=== PATIENT | female | born 1965 | race Caucasian/White ===

== ENCOUNTER 2024-11-17 00:44 | Day surgery (SDC) | payer OTHER, SELFPAY ==
[2024-10-30 15:40] VITALS: BMI 33.1
--- OUTSIDE RECORDS SUMMARY | 2024-11-17 00:49 | XMS_ITS | Clinical Summary ---
Author Organization [facility] Address [address] [place] [id number] Care Team Providers Care Exercise Instructor Name Role Phone Chris De Souza MD Primary Care Provider [phone] Chris De Souza MD Unavailable [phone] Allergies Active Allergy Reactions Criticality Noted Date Comments Amoxicillin-Pot Clavulanate Hives Medium Reaction: HIVES Aspirin Other (See comments) Low Reaction: JITTERY, Cephalexin Rash Medium 12/24/2010 Moxifloxacin Anaphylaxis High Reaction: HIVES Nitrofurantoin Hives Medium 07/01/2021 Sulfa (Sulfonamide Antibiotics) Rash Medium 07/08/2010 Reaction: RASH Medications carvedilol (COREG) 12.5 mg tablet 5 10/27/19 18 Active cetirizine (ZyrTEC) 10 mg tabletIndications: Allergic Conjunctivitis Take 1 tablet (10 mg total) by mouth repairer wood furniture before breakfast Active ibuprofen (ibuprofen) 200 mg tab/capIndications :Pain Take 1 tablet/capsule (200 mg total) by mouth every 6 (six) hours as needed for pain Active pravastatin (PRAVACHOL) 40 mg tablet Take 1 tablet (40 mg total) by mouth every evening 12/04/19 21 Active furosemide (LASIX) 20 mg tablet Take 1 tablet (20 mg total) by mouth daily as needed 10/03/19 23 Active meloxicam (MOBIC) 15 mg tabletIndications: Osteoarthritis Take 1 tablet (15 mg total) by mouth daily 30 tablet 1 01/23/20 23 Active Additional Information Patient not taking.Reported on 04/25/2024 cyanocobalamin, vitamin B-12, (VITAMIN B-12 ORAL) Take by mouth Active cranberry fruit concentrate (AZO CRANBERRY ORAL) Take by mouth Active estradioL (ESTRACE) 0.01 % (0.1 mg/gram) vaginal cream 1 GM VAGINAL MON/SUN/SARAHI/FRI /SAT 11/13/19 24 Active benzonatate (TESSALON) 100 mg capsuleIndications :Cough Take 1 capsule (100 mg total) by mouth 3 (three) times a day as needed for cough 42 capsule 04/25/19 25 Active albuterol HFA (PROVENTIL HFA,VENTOLIN HFA,PROAIR HFA) 90 mcg/actuation inhalerIndications :Bronchitis Inhale 2 puffs every 6 (six) hours as needed for wheezing for up to 7 days 1 each 04/25/19 25 Active Active Problems Problem Noted Date Diagnosed Date Shoulder mass 01/04/2018 Overview (01/04/2018): Added automatically from request for surgery [id number] Dysthymia 10/27/2016 Essential (primary) hypertension 10/27/2016 Uncomplicated asthma 10/27/2016 History of syncope 09/16/2015 Acquired absence of both cervix and uterus 09/16 Overview (02/24/2020): Note: Unchanged - [facility] IN 2007 BY [facility]. LEFT BOTH OVARIES at [facility]-- menorrhagia/ dysmenorrhea/ fibroid ut Fibrocystic breast changes 09/16/2013 Overview (02/24/2020): Note: Unchanged Perimenopausal disorder 09/16/2013 Overview (02/24/2020): Note: Unchanged Allergies 07/18/2012 Bicuspid aortic valve 05/26/2011 Hypothyroidism 01/01/2011 Asthma 12/28/2010 Hives 12/28/2010 Anaphylactoid reaction 12/24/2010 Urticaria 12/24/2010 Syncope and collapse 11/18/2010 Thoracic aortic aneurysm without rupture 011 Enlarged thoracic aorta 09/08/2010 Overview (11/20/2017): Overview: Overview: Mildly enlarged by CT angio of chest in 08/2010, with max diameter 3.8cm in the mid ascending segment, which is enlarged relative to the rest of her aorta. (Cardiac cath overestimated it at 4.95cm max diameter.) 11/2012 -- Coreg stopped, due to low energy when took it, and stable BP even off it 11/2012 Echo -- The ascending aorta was mildly dilated = 3.8 cm 04/2014 Echo -- Ascending aorta mildly dilated = 3.9 cm Enlarged thoracic aorta 09/08/2010 Overview (06/29/2020): Mildly enlarged by CT angio of chest in 08/2010, with max diameter 3.8cm in the mid ascending segment, which is enlarged relative to the rest of her aorta. (Cardiac cath overestimated it at 4.95cm max diameter.) 11/2012 -- Coreg stopped, due to low energy when took it, and stable BP even off it 11/2012 Echo -- The ascending aorta was mildly dilated = 3.8 cm 04/2014 Echo -- Ascending aorta mildly dilated = 3.9 cm Aortic valvar stenosis 09/07/2010 Overview (11/20/2017): Overview: Cath 08/2010 -- mild with angiographically normal coronaries, LVEDP 15 mmHg (normal) JUSTA 08/2010 -- mean AV gradient 10 mmHg. Echo 10/2011 -- mild with mean gradient 18 mmHg, peak velocity: 286 cm/s. Valve area = 1.1 cmsq (VTI). Echo 11/2012 -- Bicuspid AV with mild stenosis. Mean gradient: 11mm Hg Echo 04/2014 -- Probable bicuspid AV. Mild to moderate stenosis. Trivial to mild regurgitation. Peak velocity: 271cm/s. Mean gradient: 19mm Hg. Valve area: 1.34cm\S\2(VTI). Aortic valve insufficiency, acquired 09/07/2010 Overview (11/20/2017): Overview: Mild by echo, 10/2011 Trivial AI, echo 11/2012 Aortic valve stenosis, nonrheumatic 09/07/2010 Overview (11/20/2017): Overview: Mild by echo, 10/2011 Trivial AI, echo 11/2012 Overview: Cath 08/2010 -- mild with angiographically normal coronaries, LVEDP 15 mmHg (normal) JUSTA 08/2010 -- mean AV gradient 10 mmHg. Echo 10/2011 -- mild with mean gradient 18 mmHg, peak velocity: 286 cm/s. Valve area = 1.1 cmsq (VTI). Echo 11/2012 -- Bicuspid AV with mild stenosis. Mean gradient: 11mm Hg Echo 04/2014 -- Probable bicuspid AV. Mild to moderate stenosis. Trivial to mild regurgitation. Peak velocity: 271cm/s. Mean gradient: 19mm Hg. Valve area: 1.34cm\S\2(VTI). Echo 10/2017 - mild LVE, EF 60%, mild (Vmax 2.7 m/s, mean grad 16), mild AI, mild MR, RVSP 31, proximal ascending aorta not well seen. Aortic valvar stenosis 09/07/2010 Overview (06/29/2020): Cath 08/2010 -- mild with angiographically normal coronaries, LVEDP 15 mmHg (normal) JUSTA 08/2010 -- mean AV gradient 10 mmHg. Echo 10/2011 -- mild with mean gradient 18 mmHg, peak velocity: 286 cm/s. Valve area = 1.1 cmsq (VTI). Echo 11/2012 -- Bicuspid AV with mild stenosis. Mean gradient: 11mm Hg Echo 04/2014 -- Probable bicuspid AV. Mild to moderate stenosis. Trivial to mild regurgitation. Peak velocity: 271cm/s. Mean gradient: 19mm Hg. Valve area: 1.34cm\S\2(VTI). Aortic valve insufficiency, acquired 09/07/2010 Overview (06/29/2020): Mild by echo, 10/2011 Trivial AI, echo 11/2012 Dyspnea 08/18/2010 Wheezing 08/18/2010 Aortic valve disorder 07/08/2010 Encounters Date Type Department Care Team Description 11/13/2024 2:18 PM CDT - 11/13/2024 11:59 PM CDT Hospital Encounter [facility] [address] [place] [address] Abnormal mammogram Discharge Disposition: Discharge to home or self care 11/13/2024 2:17 PM CDT - 11/13/2024 11:59 PM CDT Hospital Encounter [facility] [address] [place] [address] Abnormal mammogram Discharge Disposition: Discharge to home or self care 10/29/2024 12:20 PM CDT - 10/29/2024 11:59 PM CDT Hospital Encounter [facility] [address] [place] [address] Screening mammogram, encounter for Discharge Disposition: Discharge to home or self care 09/17/2024 Telephone [facility] [address] [facility] [address] [place] [phone] Akin Watkins MD Left hip referral from Last 3 Months Surgical History Surgery Date Site/Laterality Comments HYSTERECTOMY EAR SURGERY ANKLE SURGERY Right Medical History Medical History Date Comments Arthritis Valvular disease Hypertension Family History Medical History Relation Name Comments Arthritis Father Diabetes Father Hypertension Father Arthritis Mother Hypertension Mother Breast cancer Neg Hx Ovarian cancer Neg Hx Thyroid cancer Neg Hx Relation Name Status Comments Father Mother Social History Tobacco Use Types Packs/Day Years Used Date Smoking Tobacco: Never Smokeless Tobacco: Never Tobacco Cessation:Counseling Given: Not Answered Alcohol Use Standard Drinks/Week Comments No 0 (1 standard drink = 0.6 oz pur e alcohol) Personal Safety Answer Date Recorded Have you ever been in or are you currently in a harmful physical or emotional relationship or is someone making you feel afraid or unsafe? Denies 08/09/2024 Comments No Sex and Gender Information Value Date Recorded Sex Assigned at Not on file Legal Sex Female 1:44 AM FLY TIER Gender Identity Female 01/21/2023 8:49 PM CDT Sexual Orientation Straight 01/21/2023 8: 49 PM CDT Occupation Industry Job Start Date Job End Date Teacher Not on file Not on file Not on file Obstetrics History Para Term AB IAB SAB Ectopic Multiple Livin g Live Births 1 1 1 1 Date Outcome GA Total Labor Labor/2nd/3rd Weight Sex Type Anes PTL Sarah A1 A5 Name Clin Term Last Filed Vital Signs Vital Sign Reading Time Taken Comments Blood Pressure 134/80 08/09/2024 9:30 PM CDT Pulse 63 08/09/2024 9:30 PM CDT Temperature 36.4 C (97.6 F) 08/09/2024 3:21 PM CDT Respiratory Rate 20 08/09/2024 3:21 PM CDT Oxygen Saturation 97% 08/09/2024 9:30 PM CDT Inhaled Oxygen Concentration - - Weight 99.3 kg (219 lb) 11/13/2024 2:25 PM CDT Height 172.7 cm (5' 8) 11/13/2024 2:25 PM CDT Body Mass Index 33.3 11/13/2024 2:25 PM CDT Plan of Treatment Health Maintenance Due Date Last Done Comments Depression Screening 1965 Hepatitis C Screening 1964 Hepatitis B Screening 1982 Regular Well Visit/Exam 18-64 1982 Pneumococcal vaccine <65 (2 of 2 - PPSV23) 05/07/2011 03/12/2011 Zoster Vaccine (1 of 2) 2014 Influenza Vaccine (#1) 2024 2, 01/25/2021, 01/29/2020, Additional history exists Breast Cancer Screening-Mammogram 11/13/2025 11/13/2024, 10/29/2024, 01/12/2023, Additional history exists DTaP/Tdap/Td Vaccine (2 - Td or Tdap) 11/15/2025 11/16/2015 Colon Cancer Screening-Colonoscopy 12/05/2025 12/06/2015 Colon Cancer Screening-CT Colonography Discontinued 12/06/2015 Colon Cancer Screening-DNA Stool Discontinued 12/06/19 16 Colon Cancer Screening-FIT Discontinued 12/06/2015 Colon Cancer Screening-Sigmoidoscopy Discontinued 12/06/2015 Procedures Procedure Name Priority Date/Time Associated Diagnosis Comments DIAGNOSTIC MAMMOGRAM BILATERAL [place]ELAND Schedule Routine, Read Routine (OP Routine) 11/13/2024 2:38 PM CDT Abnormal mammogram SCREENING MAMMOGRAM BILATERAL [place] Schedule Routine, Read Routine (OP Routine) 10/29/2024 12:51 PM CDT Screening mammogram, encounter for COLONOSCOPY IMAGES 12/06/2015 from Last 3 Months or Most Recently Relevant to Health Maintenance Results * Diagnostic Mammogram Bilateral [place] (11/13/2024 2:38 PM CDT) Anatomical Region Laterality Modality Breast Bilateral Mammography 11/13/2024 4:09 PM CDT Impressions 11/13/2024 4:09 PM CDT Bilateral mammographic and sonographic lesions are probably benign. A follow-up bilateral diagnostic mammogram and ultrasound are recommended in 6 months. BI-RADS: 3 - Probably benign The patient has been or will be contacted. The patient will be entered into a reminder system with a target due date of 6 months for her next examinations. Electronically signed by: Sandy Watkins M.D. Narrative 11/13/2024 4:09 PM CDT EXAMINATION: DIAGNOSTIC MAMMOGRAM BILATERAL [place]AND ORDERING HEALTHCARE PROVIDER: MEGAN PEARCE HISTORY: Follow-up breast asymmetry seen on screening mammogram. COMPARISON: 2019, 03/19/2020 01/03/2023, 01/03/2022 TECHNIQUE: CC and MLO spot compression and lateral views of the Bilateral breasts were obtained with digital technique using breast tomosynthesis with C view. Computer aided detection was utilized. This was followed by targeted bilateral breast sonography FINDINGS: There are scattered areas of fibroglandular density. Additional views of both breasts were obtained. The asymmetry seen in the central left breast on the craniocaudal view anteriorly and the asymmetry seen in the superior right breast on the MLO view, middle depth partially effaces on the additional views. Further evaluation targeted bilateral breast ultrasound: At the 1 o'clock position of the right breast, 3 cm from the nipple, there is a 3 mm cyst. Within the left breast, at the 1 o'clock position, 3 cm from the nipple, there is a 0.5 x 0.3 x 0.2 cm hypoechoic lesion which is likely a complex cyst. Neither of these demonstrate internal vascularity. It is unclear if these lesions correspond to the mammographic findings. The mammographic and sonographic lesions in both breasts will be classified as probably benign. Procedure Note Sandy Watkins MD - 07/31/2025 EXAMINATION: DIAGNOSTIC MAMMOGRAM BILATERAL [place]AND ORDERING HEALTHCARE PROVIDER: MEGAN PEARCE HISTORY: Follow-up breast asymmetry seen on screening mammogram. COMPARISON: 2019, 03/19/2020 01/03/2023, 01/03/2022 TECHNIQUE: CC and MLO spot compression and lateral views of the Bilateral breasts were obtained with digital technique using breast tomosynthesis with C view. Computer aided detection was utilized. This was followed by targeted bilateral breast sonography FINDINGS: There are scattered areas of fibroglandular density. Additional views of both breasts were obtained. The asymmetry seen in the central left breast on the craniocaudal view anteriorly and the asymmetry seen in the superior right breast on the MLO view, middle depth partially effaces on the additional views. Further evaluation targeted bilateral breast ultrasound: At the 1 o'clock position of the right breast, 3 cm from the nipple, there is a 3 mm cyst. Within the left breast, at the 1 o'clock position, 3 cm from the nipple, there is a 0.5 x 0.3 x 0.2 cm hypoechoic lesion which is likely a complex cyst. Neither of these demonstrate internal vascularity. It is unclear if these lesions correspond to the mammographic findings. The mammographic and sonographic lesions in both breasts will be classified as probably benign. IMPRESSION: Bilateral mammographic and sonographic lesions are probably benign. A follow-up bilateral diagnostic mammogram and ultrasound are recommended in 6 months. BI-RADS: 3 - Probably benign The patient has been or will be contacted. The patient will be entered into a reminder system with a target due date of 6 months for her next examinations. Electronically signed by: Sandy Watkins M.D. us Megan Pearce DENTAL SERVICES DIRECTOR IMG MAMMO PROCEDURES Final Res ult * (ABNORMAL) Screening Mammogram Bilateral [place]eland (10/29/2024 12:51 PM CDT) Anatomical Region Laterality Modality Breast Bilateral Mammography Impressions 10/29/2024 2:16 PM CDT Left 1) Asymmetry: Left breast asymmetry in the central region in the anterior depth. Assessment: 0 - Incomplete. Diagnostic mammogram with possible ultrasound is recommended. Right 2) Asymmetry: Right breast asymmetry in the upper region in the middle depth. Assessment: 0 - Incomplete. Diagnostic mammogram with possible ultrasound is recommended. OVERALL BI-RADS FINAL ASSESSMENT: 0 - Incomplete: Needs Additional Imaging Evaluation RECOMMENDATION: Recommend bilateral diagnostic mammogram with possible ultrasound. Narrative 10/29/2024 2:16 PM CDT EXAMINATION: Screening Mammogram Bilateral W Leland: 10/29/2024 COMPARISON: Relevant prior studies available at the time of interpretation were reviewed, including the most recent mammogram on: 01/12/2023. TECHNIQUE: Mammography was performed with 2D and digital breast tomosynthesis (DBT) images. CAD was utilized. BREAST PARENCHYMAL COMPOSITION: There are scattered areas of fibroglandular density. FINDINGS: Left 1) Asymmetry: There is an asymmetry seen in the central region of the left breast in the anterior depth. This finding needs additional imaging evaluation. Right 2) Asymmetry: There is an asymmetry seen in the upper region of the right breast in the middle depth. This finding needs additional imaging evaluation. us Self Screening Mammogram IMG MAMMO PROCEDURES Fi nal Result * COLONOSCOPY IMAGES (12/06/2015) Anatomical Region Laterality Modality Other Narrative 12/06/2015 Ordered by an unspecified provider. Historical Provider GI PROCEDURE ORDERABLES F inal Result from Last 3 Months or Most Recently Relevant to Health Maintenance Insurance [employer] SIG [id number] [facility] Care Teams Exercise Instructor Relationship Specialty Start Date End Date Chris De Souza MD [address] [place] [address] PCP - General 12/01/10 Chris De Souza MD [address] [place] [address] Referring Physician Internal Medicine 10/15/19
--- OUTSIDE RECORDS SUMMARY | 2024-11-17 00:49 | XMS_ITS | Encounter Summary ---
Author Organization [facility] Address [address] [place] [address] Phone Care Team Providers Care Breastfeeding Peer Counselor Name Role Phone Chris De Souza MD Primary Care Provider [phone] Ryan Acosta MD Unavailable Reason for Visit * Reason Comments Medication Refill Encounter Details Date Type Department Care Team (Late st Contact Info) Description 11/16/[address] [facility] - Internal Medicine - [place] [address] [place] [id number] Chris De Souza MD [address] [facility] [place] [address] Medication Refill Social History Tobacco Use Types Packs/Day Years Used Date Smoking Tobacco: Never Passive Smoke Exposure: Past Smokeless Tobacco: Never Alcohol Use Standard Drinks/Week Comments Not Currently 0 (1 standard drink = 0.6 oz pur e alcohol) [facility] Utilities Answer Date Recorded In the past 12 months has [employer], gas, oil, or water company threatened to shut off services in your home? No 08/04/2024 Social Connection and Isolation Panel Answer Date Recorded In a typical week, how many times do you talk on the phone with family, friends, or neighbors? More than three times a week 08/04/2024 How often do you get togethe r with friends or relatives? Twice a week 08/04/2024 How often do you attend [facility] or anabaptist services? More than 4 times per year 08/04/2024 Do you belong to any clubs o r organizations such as mandaeism groups, unions, fraternal or athletic groups, or school groups? Yes 08/04/2024 How often do you attend meet ings of the clubs or organizations you belong to? More than 4 times per year 08/04/2024 Are you , , di vorced, , never , or living with a partner? 08/04/2024 AUDIT-C Answer Date Recorded Q1: How often do you have a drink containing alcohol? Never 08/04/2024 Q2: How many drinks containi ng alcohol do you have on a typical day when you are drinking? Patient does not drink Q3: How often do you have si x or more drinks on one occasion? Never 08/04/2024 Overall Financial Resource Strain (CARDIA) Answe r Date Recorded How hard is it for you to pa y for the very basics like food, housing, medical care, and heating? Not very hard 08/04/2024 PHQ-2 Answer Date Recorded Total Score - Questions 1-9 0 04/17 [facility] Occupat ional [facility] - Occupational Stress Questionnaire Answer Date Recorded Do you feel stress - tense, restless, nervous, or anxious, or unable to sleep at night because your mind is troubled all the time - these days? Only a little 08/04/2024 Exercise Vital Sign Answer Date Recorde d On average, how many days pe r week do you engage in moderate to strenuous exercise (like a brisk walk)? 5 days 08/04/2024 On average, how many minutes do you engage in exercise at this level? 30 min 08/04/2024 Hunger Vital Sign Answer Date Recorded Within the past 12 months, y ou worried that your food would run out before you got the money to buy more. Never true 08/05/19 25 Within the past 12 months, t he food you bought just didn't last and you didn't have money to get more. Never true 08/04/2024 PRAPARE - Transportation Answer Date Re corded In the past 12 months, has l ack of transportation kept you from medical appointments or from getting medications? No 07/16 In the past 12 months, has l ack of transportation kept you from meetings, work, or from getting things needed for daily living? No 08/04/2024 Housing Stability Vital Sign Answer Rainer e Recorded In the last 12 months, was t here a time when you were not able to pay the mortgage or rent on time? Yes 09/18/2023 In the last 12 months, how many places have you lived? 1 09/18/2023 In the last 12 months, was t here a time when you did not have a steady place to sleep or slept in a mcc (including now)? No 09/18/2023 Housing Stability Vital Sign Answer Rainer e Recorded In the last 12 months, was t here a time when you were not able to pay the mortgage or rent on time? No 08/04/2024 In the past 12 months, how m any times have you moved where you were living? 0 08/04/2024 At any time in the past 12 m [facility], were you homeless or living in a mcc (including now)? No 08/04/2024 Sexually Active Control Partners Comments Yes Comments No Sex and Gender Information Value Date Recorded Sex Assigned at Not on file Legal Sex Female 9:13 PM CDT Gender Identity Not on file Sexual Orientation Not on file documented as of this encounter Plan of Treatment Upcoming Encounters Date Type Department Care Team (Late st Contact Info) Description 02/03/2025 11:00 AM CDT Office Visit [facility] - Primary Care [facility] [address] [place] [address] Chris De Souza MD [address] [place] [address] documented as of this encounter Visit Diagnoses Not on filedocumented in this encounter Additional Health Concerns Assessment Noted Time PHQ-9 Depression Total Score: 0 05/05/19 25 2:30 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
--- OUTSIDE RECORDS SUMMARY | 2024-11-17 00:49 | XMS_ITS | Encounter Summary ---
Author Organization [facility] Address [address] [place] [place] [address] Phone Care Team Providers Care Boot And Saddle Repair Person Name Role Phone Chris De Souza MD Primary Care Provider [phone] Ryan Acosta MD Unavailable Reason for Referral * Radiology Services (Routine) - Closed Specialty Diagnoses / Procedures Referred By Phyllis boles Referred To Contact Radiology Diagnoses Pre-op testing Sinus tarsi syndrome of right foot Procedures EKG 12 LEAD Victor Hugo Palomo DPM [address] [place] [address] Phone: tel: fax: Referral ID Status Reason Start Date Expiration Date Visits Re quested Visits Authorized [id number] Closed 08/21/2022 1 1 Encounter Details Date Type Department Care Team (Late st Contact Info) Description 08/21/2022 Transcribe Orders [facility] Preop/Pacu II [address] [place] [id number] Victor Hugo Palomo DPM [address] [place] [address] Pre-op testing (Primary Dx); Sinus tarsi syndrome of right foot Social History Tobacco Use Types Packs/Day Years Used Date Smoking Tobacco: Never Passive Smoke Exposure: Past Smokeless Tobacco: Never Alcohol Use Standard Drinks/Week Comments Not Currently 0 (1 standard drink = 0.6 oz pur e alcohol) PHQ-2 Answer Date Recorded Total Score - Questions 1-9 0 05/17 Sexually Active Control Partners Comments Yes Comments No Sex and Gender Information Value Date Recorded Sex Assigned at Not on file Legal Sex Female 9:13 PM CDT Gender Identity Not on file Sexual Orientation Not on file COVID-19 Exposure Response Date Recorded In the last 10 days, have yo u been in contact with someone who was confirmed or suspected to have Coronavirus/COVID-19? No / Unsure 08/21/2022 9:08 AM CDT documented as of this encounter Plan of Treatment Upcoming Encounters Date Type Department Care Team (Late st Contact Info) Description 02/03/2025 11:00 AM CDT Office Visit [facility] - Primary [facility] - [place] [address] [place] [id number] Chris De Souza MD [address] [facility] [place] [address] documented as of this encounter Results * EKG 12 LEAD (08/31/2022 11:38 AM CDT) Ventricular Rate 57 BPM EXTERNAL EKG Atrial Rate 57 BPM EXTERNAL EKG P-R Interval 206 ms EXTERNAL EKG QRS Duration 94 ms EXTERNAL EKG Q-T Duration 438 ms EXTERNAL EKG QTC CALCULATION 426 ms EXTERNAL EKG P [place] 35 degrees EXTERNAL EKG R [place] 4 degrees EXTERNAL EKG T [place] 30 degrees EXTERNAL EKG 08/31/2022 11:3 8 AM CDT Impressions EXTERNAL EKG - 08/31/2022 12:35 PM CDT Sinus bradycardia Otherwise normal ECG No previous ECGs available Confirmed by Shalom Acosta ([id number]) on 08/31/2022 12:35:11 PM Narrative Procedure Note Shalom Pierce MD - 08/31/2022 IMPRESSION: Sinus bradycardia Otherwise normal ECG No previous ECGs available Confirmed by Shalom Acosta ([id number]) on 08/31/2022 12:35:11 PM us Victor Hugo Plaomo DPM IMG ECG ORDERABLES Final Re sult EXTERNAL EKG documented in this encounter Visit Diagnoses Diagnosis Pre-op testing- Primary Preoperative examination, unspecified Sinus tarsi syndrome of right foot Pre-op testing Preoperative examination, unspecified Sinus tarsi syndrome of right foot documented in this encounter Additional Health Concerns Assessment Noted Time PHQ-9 Depression Total Score: 0 02/22/20 21 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 [address] PCP - General Internal Medicine 08/06/15 Ryan Acosta MD [address] [address] Consulting Physician Colon and Rectal Surgery 07/25/24 documented as of this encounter
--- OUTSIDE RECORDS SUMMARY | 2024-11-17 00:49 | XMS_ITS | Clinical Summary ---
Author Organization [facility] Address [address] [place] [address] Care Team Providers Care Bad Cloth Checker Name Role Phone Cody Varela MD Unavailable [phone] Source Comments [facility],non-owned Affiliates and Associated Physician Practices is amultiple site organization consisting of ambulatory clinics and hospital sitesin [place], [place], [place] and [place]. This disclosure is being madepursuant to the Care Everywhere program and may not contain all information available regarding this patient. Last updated 18.[facility] Allergies Active Allergy Reactions Criticality Noted Date Comments Aspirin Jittery Augmentin Angioedema Moxifloxacin Shortness of breath, wheezing, rash Cephalexin Rash Low Sulfa Drugs Rash Low Medications * Be aware that medications may not be up to date on this document. Alwaysverify current medications with the patient. 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 Family History Medical History Relation Name Comments Diabetes Father Emphysema Father Heart Disease Father Hypertension Father Hypertension Mother Relation Name Status Comments Father Mother Social History Tobacco Use Types Packs/Day Years Used Date Smoking Tobacco: Never Alcohol Use Standard Drinks/Week Comments No 0 (1 standard drink = 0.6 oz pur e alcohol) Comments Unknown Sex and Gender Information Value Date Recorded Sex Assigned at Not on file Legal Sex Female 12:53 PM CDT Gender Identity Not on file Sexual Orientation Not on file Last Filed Vital Signs Vital Sign Reading Time Taken Comments Blood Pressure 125/83 04/15/2020 1:18 PM ACCREDITATION MANAGER Pulse 52 04/15/2020 1:18 PM ACCREDITATION MANAGER Temperature - - Respiratory Rate - - Oxygen Saturation 98% 04/15/2020 12:30 PM ACCREDITATION MANAGER Inhaled Oxygen Concentration - - Weight 105.7 kg (233 lb) 04/15/2020 12:30 PM ACCREDITATION MANAGER Height 172.7 cm (5' 8) 04/15/2020 12:30 PM ACCREDITATION MANAGER Body Mass Index 35.43 04/15/2020 12:30 PM ACCREDITATION MANAGER Plan of Treatment Health Maintenance Due Date Last Done Comments COLOGUARD (AGES 45-75) - COLON CA SCREENING 1964 COLON MONITORING 1964 COLONOSCOPY - COLON CA SCREENING 1964 CT COLONOGRAPHY - COLON CA SCREENING 1964 Colorectal Cancer Screening 1964 FIT - COLON CA SCREENING 1964 FLEX SIG - COLON CA SCREENING 1964 LIPID TESTING 1964 HIV SCREENING 06/26/1979 HEPATITIS C SCREENING 06/21/1982 DTAP/TDAP/TD VACCINES (1 - Tdap) 06/26/1983 PNEUMOCOCCAL VACCINE 50+ (1 of 1 - PCV) 2014 ZOSTER VACCINE (1 of 2) 2014 SCREENING FOR DIABETES 04/15/2020 MAMMOGRAM 08/02/2020 08/02/2018, 06/23/2016 COVID-19 VACCINE ( season) 2023 DEPRESSION SCREENING 04/16/2024 INFLUENZA VACCINE (#1) 2024 , 03/03/2019, 03/12/2011, Additional history exists Respiratory Syncytial Virus (RSV) Vaccine Pt: or over 60 yrs (1 - 1-dose 75+ series) 06/26/2039 HEPATITIS B VACCINE Aged Out No longe r eligible based on patient's age to complete this topic HIB VACCINE Aged Out No longer eligi ble based on patient's age to complete this topic HPV VACCINE Aged Out No longer eligi ble based on patient's age to complete this topic MENINGOCOCCAL (Group B) VACCINE SHARED DECISION-MAKING Aged Out No longer eligible based on patient's age to complete this topic MENINGOCOCCAL GROUPS A/C/Y/W VACCINE Aged Out No longer eligible based on patient's age to complete this topic Insurance [employer] Care Teams Bad Cloth Checker Relationship Specialty Start Date End Date Cody Varela MD [address] [place] [id number] Cardiology 10/06/14
--- OUTSIDE RECORDS SUMMARY | 2024-11-17 00:49 | XMS_ITS | Encounter Summary ---
Author Organization [facility] Address [address] [place] [address] Care Team Providers Care Manager Life Sciences Name Role Phone Chris De Souza MD Primary Care Provider [phone] Chris De Souza MD Unavailable [phone] Reason for Visit * Reason Onset Date Comments Scheduling Appointments 10/27/2020 Confirmi ng mammogram appt- no answer Encounter Details Date Type Department Care Team (Late st Contact Info) Description 10/27/2020 Telephone [facility] [address] [place] [address] Diamond Ramirez RT Scheduling Appointments (Confirming mammogram appt- no answer ) Social History Tobacco Use Types Packs/Day Years Used Date Smoking Tobacco: Never Smokeless Tobacco: Never Alcohol Use Standard Drinks/Week Comments No 0 (1 standard drink = 0.6 oz pur e alcohol) Comments Unknown Sex and Gender Information Value Date Recorded Sex Assigned at Not on file 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 Gender Identity Female 01/21/2023 8:49 PM CDT Sexual Orientation Straight 01/21/2023 8: 49 PM CDT Occupation Industry Job Start Date Job End Date Teacher Not on file Not on file Not on file documented as of this encounter Plan of Treatment Not on file documented as of this encounter Visit Diagnoses Not on filedocumented in this encounter Care Teams Manager Life Sciences Relationship Specialty Start Date End Date Chris De Souza MD [address] [place] [address] PCP - General 12/01/10 Chris De Souza MD [address] [place] [address] Referring Physician Internal Medicine 10/15/19 documented as of this encounter
--- OUTSIDE RECORDS SUMMARY | 2024-11-17 00:49 | XMS_ITS | Encounter Summary ---
Author Organization [facility] Address [address] [place] [address] Care Team Providers Care Belt Loop Cutter Name Role Phone Chris De Souza MD Primary Care Provider [phone] Encounter Details Date Type Department Care Team (Late st Contact Info) Description 09/10/2003 Outpatient Historical [facility] Maternal and Ground Floor [address] [place] [address] Leroy Pacheco MD [address] [address] Social History Tobacco Use Types Packs/Day Years Used Date Smoking Tobacco: Never Assessed Comments Unknown Sex and Gender Information Value Date Recorded Sex Assigned at Not on file Legal Sex Female 4:04 AM BOAT CREW DECK HAND Gender Identity Not on file Sexual Orientation Not on file documented as of this encounter Plan of Treatment Not on file documented as of this encounter Visit Diagnoses Not on filedocumented in this encounter Care Teams Belt Loop Cutter Relationship Specialty Start Date End Date Chris De Souza MD [address] [place] [address] PCP - General Internal Medicine 08/17/10 documented as of this encounter
--- OUTSIDE RECORDS SUMMARY | 2024-11-17 00:49 | XMS_ITS | Referral Summary ---
Author Organization [facility] Address [address] [place] [address] Care Team Providers Care Database Development Project Manager Name Role Phone Chris De Souza MD Primary Care Provider [phone] Chris De Souza MD Unavailable [phone] Encounters Date Type Department Care Team Description 11/13/2024 2:17 PM CDT - 11/13/2024 11:59 PM CDT Hospital Encounter [address] [address] Abnormal mammogram Discharge Disposition: Discharge to home or self care 11/13/2024 2:18 PM CDT - 11/13/2024 11:59 PM CDT Hospital Encounter [address] [address] Abnormal mammogram Discharge Disposition: Discharge to home or self care 10/29/2024 12:20 PM CDT - 10/29/2024 11:59 PM CDT Hospital Encounter [address] [address] Screening mammogram, encounter for Discharge Disposition: Discharge to home or self care 09/17/2024 Telephone [facility] [address] [place] [address] Akin Watkins MD Left hip referral from Last 3 Months Allergies Active Allergy Reactions Criticality Noted Date [...] 1 tablet (10 mg total) by mouth paper feeder before breakfast Active ibuprofen (ibuprofen) 200 mg [...] (0.1 mg/gram) vaginal cream 1 GM VAGINAL SUN/SUN/SARAHI/SUN /SAT 11/13/19 24 Active benzonatate (TESSALON) 100 [...] (01/04/2018): Added automatically from request for surgery [id number] Dysthymia 10/27/2016 Essential (primary) hypertension 10/27/2016 Uncomplicated [...] 08/18/2010 Wheezing 08/18/2010 Aortic valve disorder 07/08/2010 Social History Tobacco Use Types Packs/Day Years [...] on file Legal Sex Female 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 Procedure Note Sandy Watkins MD - 11/13/2024 EXAMINATION: DIAGNOSTIC MAMMOGRAM BILATERAL W [place] ORDERING [...] examinations. Electronically signed by: Sandy Watkins M.D. Megan Pearce VAN DRIVER HELPER IMG MAMMO PROCEDURES Final Res ult * [...] Most Recently Relevant to Health Maintenance Insurance [facility] [place] [id number] [place] [id number] Care Teams Database Development Project Manager Relationship Specialty Start Date End Date Chris De Souza MD [address] [place] [address] PCP - General 12/01/10 Chris De Souza MD [address] [place] [address] Referring Physician Internal Medicine 10/15/19
--- OUTSIDE RECORDS SUMMARY | 2024-11-17 00:49 | XMS_ITS | Encounter Summary ---
Author Organization [facility] Address [address] [place] [address] Care Team Providers Care Product/Industry Consultant Name Role Phone Chris De Souza MD Primary Care Provider [phone] Encounter Details Date Type Department Care Team (Latest Contact Info) Description 09/07/2003 Inpatient Historical [facility] PATIENT IN A BED Leroy Pacheco MD [id number] [place] [address] Poonam Johnson MD [address] [place] [address] THRT NICHOL LABOR-ANTEPART (Primary Dx) Social History Tobacco Use Types Packs/Day Years Used Date Smoking Tobacco: Never Assessed Comments Unknown Sex and Gender Information Value Date Recorded Sex Assigned at Not on file Legal 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
--- OUTSIDE RECORDS SUMMARY | 2024-11-17 00:49 | XMS_ITS | Encounter Summary ---
Author Organization [facility] Address [address] [place] [address] Care Team Providers Care International Sourcing Manager Name Role Phone Chris De Souza MD Primary Care Provider [phone] Encounter Details Date Type Department Care Team (Late st Contact Info) Description 05/11/2003 Outpatient Historical [facility] Maternal and Ground Floor S [facility] [address] [place] [place] [address] Ivan Soler MD NO ADDRESS ON FILE Social History Tobacco Use Types Packs/Day Years Used Date Smoking Tobacco: Never Assessed Comments Unknown Sex and Gender Information Value Date Recorded Sex Assigned at Not on file Legal Sex Female 4:04 AM MANAGER OF DEVELOPMENT Gender Identity Not on file Sexual Orientation Not on file documented as of this encounter Plan of Treatment Not on file documented as of this encounter Visit Diagnoses Not on filedocumented in this encounter Care Teams International Sourcing Manager Relationship Specialty Start Date End Date Chris De Souza MD [address] [place] [address] PCP - General Internal Medicine 08/17/10 documented as of this encounter
--- OUTSIDE RECORDS SUMMARY | 2024-11-17 00:49 | XMS_ITS | Encounter Summary ---
Author Organization [facility] Address [address] [place] [address] Phone Care Team Providers Care Tumbling Instructor Name Role Phone Chris De Souza MD Primary Care Provider [phone] Ryan Acosta MD Unavailable Reason for Visit * Reason Comments Medication Refill Encounter Details Date Type Department Care Team (Late st Contact Info) Description 09/20/2023 Refill [facility] - [facility] - [place] [address] [place] [id number] Chris De Souza MD [address] [place] [address] Medication Refill Social History Tobacco Use Types Packs/Day Years Used Date Smoking Tobacco: Never Passive Smoke Exposure: Past Smokeless Tobacco: Never Alcohol Use Standard Drinks/Week Comments Not Currently 0 (1 standard drink = 0.6 oz pur e alcohol) [facility] Utilities Answer Date Recorded In the past 12 months has [employer] electric, gas, oil, or water company threatened to shut off services in your home? No 09/18/2023 Social Connection and Isolation Panel Answer Date Recorded In a typical week, how many times do you talk on the phone with family, friends, or neighbors? Twice a week 09/18/2023 How often do you get togethe r with friends or relatives? Twice a week 09/18/2023 How often do you attend [facility] or holiness services? More than 4 times per year 09/18/2023 Do you belong to any clubs o r organizations such as mormonism groups, unions, fraternal or athletic groups, or school groups? Yes 09/18/2023 How often do you attend meet ings of the clubs or organizations you belong to? More than 4 times per year 09/18/2023 Are you , , di vorced, , never , or living with a partner? 09/18/2023 AUDIT-C Answer Date Recorded Q1: How often do you have a drink containing alcohol? Never 09/18/2023 Q2: How many drinks containi ng alcohol do you have on a typical day when you are drinking? Patient does not drink Q3: How often do you have si x or more drinks on one occasion? Never 09/18/2023 Overall Financial Resource Strain (CARDIA) Answe r Date Recorded How hard is it for you to pa y for the very basics like food, housing, medical care, and heating? Not very hard 09/18/2023 PHQ-2 Answer Date Recorded Total Score - Questions 1-9 0 05/17 [facility] - Occupational Stress Questionnaire Answer Date Recorded Do you feel stress - tense, restless, nervous, or anxious, or unable to sleep at night because your mind is troubled all the time - these days? Only a little 09/18/2023 Exercise Vital Sign Answer Date Recorde d On average, how many days pe r week do you engage in moderate to strenuous exercise (like a brisk walk)? 2 days 09/18/2023 On average, how many minutes do you engage in exercise at this level? 30 min 09/18/2023 Hunger Vital Sign Answer Date Recorded Within the past 12 months, y ou worried that your food would run out before you got the money to buy more. Never true 09/18/19 24 Within the past 12 months, t he food you bought just didn't last and you didn't have money to get more. Never true 09/18/2023 PRAPARE - Transportation Answer Date Re corded In the past 12 months, has l ack of transportation kept you from medical appointments or from getting medications? No 07/2023 In the past 12 months, has l ack of transportation kept you from meetings, work, or from getting things needed for daily living? No 09/18/2023 Housing Stability Vital Sign Answer [...] place to sleep or slept in a skilled nursing (including now)? No 09/18/2023 Sexually Active Control Partners Comments Yes Comments No Sex and Gender Information Value Date Recorded Sex Assigned at Not on file Legal Sex Female 9:13 PM CDT Gender Identity Not on file Sexual Orientation Not on file documented as of this encounter Miscellaneous Notes * Telephone Encounter - Keisha Meadows RN - 09/20/2023 8:09 AM CDT Medication failed the protocol, provider to review and approve the medication order if appropriate. Requested Prescriptions Pending Prescriptions Disp Refills pravastatin (PRAVACHOL) 40 MG Tablet [Pharmacy Med Name: PRAVASTATIN SODIUM 40 MG TAB] 90 Tablet 1 Sig: TAKE 1 TABLET BY MOUTH EVERY DAY IN THE EVENING Hmg CoA Reductase Inhibitors Protocol Failed - 09/20/2023 12:12 AM Failed - Lipid panel in past 12 months No results found for: LDL, HDLCHOLESTE, CHOLESTEROL, TRIGLYCRIDES, VLDL, CHDL, HDLNON Failed - CMP in past 12 months SODIUM Date Value Ref Range Status 08/06/2022 134 (L) 136 - 144 mmol/L Final POTASSIUM Date Value Ref Range Status 08/06/2022 3.9 3.5 - 5.1 mmol/L Final CHLORIDE Date Value Ref Range Status 08/06/2022 98 (L) 100 - 110 mmol/L Final CO2, VENOUS Date Value Ref Range Status 08/06/2022 25 22 - 32 mmol/L Final ANION GAP Date Value Ref Range Status 08/06/2022 14.9 8.0 - 20.0 mmol/L Final GLUCOSE Date Value Ref Range Status 08/06/2022 200 (H) 70 - 99 mg/dL Final BUN Date Value Ref Range Status 08/06/2022 11 6 - 20 mg/dL Final CREATININE, BLOOD Date Value Ref Range Status 08/06/2022 0.70 0.60 - 1.10 mg/dL Final BUN/CREATININE RATIO Date Value Ref Range Status 08/06/2022 16 12 - 20 ratio Final TOTAL PROTEIN Date Value Ref Range Status 08/06/2022 6.6 6.0 - 8.3 g/dL Final ALBUMIN Date Value Ref Range Status 08/06/2022 4.0 3.5 - 5.2 g/dL Final Comment: The colormetric methods used for the determination of Albumin may lead to falsely elevated test results in patients suffering from renal failure or insufficiency due to interference with other proteins. A/G RATIO Date Value Ref Range Status 08/06/2022 1.5 1.0 - 2.0 Final CALCIUM Date Value Ref Range Status 08/06/2022 9.2 8.9 - 10.3 mg/dL Final T BILI Date Value Ref Range Status 08/06/2022 0.5 <=1.2 mg/dL Final SGOT (AST) Date Value Ref Range Status 08/06/2022 60 (H) <=32 U/L Final SGPT (ALT) Date Value Ref Range Status 08/06/2022 52 (H) <=41 U/L Final ALKALINE PHOSPHATASE Date Value Ref Range Status 08/06/2022 88 35 - 105 U/L Final GFR, EST. NONAFRICAN Date Value Ref Range Status 08/06/2022 >60 >=60 Final GFR, EST. Date Value Ref Range Status 08/06/2022 >60 >=60 Final GFR, ESTIMATED Date Value Ref Range Status 08/06/2022 >60 >=60 Final Comment: Creatinine Clearance is the preferred criteria for selecting drug dose adjustments in renally impaired patients. The GFR is provided as additional pertinent clinical information. GFR is reported in mL/min/1.73 sq m. Calculation based on the Chronic Kidney Disease Epidemiology Collaboration (CKD- EPI) equation refitwithout adjustment for race. Passed - Visit with relevant provider in past 12 months or upcoming 90 days Recent Visits Date Type Provider Dept 09/18/23 Office Visit Marielena Castellano, KARY [facility] [place] 06/20/23 Office Visit [facility]ena Castellano, [facility] 10/03/22 Office Visit Chris De Souza MD [facility] [place] Show[facility] recent visits within past 365 days and meeting all other requirements Future Appointments Date Type Provider Dept 10/03/23 Appointment Marielena Castellano PAC [facility] [place] [facility] future appointments within next 90 days and meeting all other requirements documented in this encounter Plan of Treatment Upcoming Encounters Date Type Department Care Team (Late st Contact Info) Description 02/03/2025 11:00 AM CDT Office Visit [facility] - Primary Care - [place] [address] [place] [address] Chris De Souza MD [address] [place] [address] documented as of this encounter Visit Diagnoses Not on filedocumented in this encounter Additional Health Concerns Assessment Noted Time PHQ-9 Depression Total Score: 0 02/22/20 21 10:00 AM [employer] documented as of this encounter Care Teams Tumbling Instructor Relationship Specialty Start Date End Date Chris De Souza MD [address] [place] [address] PCP - General Internal Medicine 08/06/15 Ryan Acosta MD [address] [address] Consulting Physician Colon and Rectal Surgery 07/25/24 documented as of this encounter
--- OUTSIDE RECORDS SUMMARY | 2024-11-17 00:49 | XMS_ITS | Encounter Summary ---
Author Organization [facility] Address [address] [place] [address] Care Team Providers Care Caustic Pump Operator Name Role Phone Chris De Souza MD Primary Care Provider [phone] Encounter Details Date Type Department Care Team (Latest Contact Info) Description 05/11/2003 [facility]patient [facility] Carol Delong ELDER PRIMIGRAVID-ANTEPART UM (Primary Dx) Social History Tobacco Use Types Packs/Day Years Used Date Smoking Tobacco: Never Assessed Comments Unknown Sex and Gender Information Value Date Recorded Sex Assigned at Not on file Legal Sex Female 4:04 AM [employer] Gender Identity Not on file Sexual Orientation Not on file documented as of this encounter Plan of Treatment Not on file documented as of this encounter Visit Diagnoses Diagnosis Elderly primigravida, antepartum- Primary documented in this encounter Care Teams Caustic Pump Operator Relationship Specialty Start Date End Date Chris De Souza MD [address] [place] [address] PCP - General Internal Medicine 08/17/10 documented as of this encounter
--- OUTSIDE RECORDS SUMMARY | 2024-11-17 00:50 | XMS_ITS | Clinical Summary ---
Author Organization [facility] Address [address] [place] [address] Phone Care Team Providers Care Clothing Patternmaker Name Role Phone Chris De Souza MD Primary Care Provider Ryan Acosta MD Unavailable Allergies Active Allergy Reactions Criticality Noted Date Comments Amoxicillin Rash 07/08/2010 Aspirin Other (see Comments) 07/08/2010 Reaction: jittery Amoxicillin-Pot Clavulanate Shortness of Breath,Rash 12/23/2010 Moxifloxacin Shortness of Breath,Rash 12/23/2010 Levofloxacin Hives,Itching 07/02/2021 Nitrofurantoin Hives 07/01/2021 Sulfa Antibiotics Rash 07/08/2010 Medications cetirizine (ZyrTEC) 10 MG Tablet Take 10 mg by mouth daily. Active Cyanocobalamin (VITAMIN B12 PO) Take by mouth daily. Active Ventolin HFA 108 (90 Base) MCG/ACT Aerosol Solution take 1-2 Puffs by inhalation every 4 hours as needed for Wheezing. 8.5 g 2 2 Active carvedilol (COREG) 12.5 MG Tablet 2 times daily. 2 Active CRANBERRY PO Take by mouth daily. Active furosemide (LASIX) 20 MG Tablet TAKE 1 TABLET BY MOUTH DAILY NEEDED (EDEMA). 90 Tablet 1 3 Active fluticasone-claribel meterol (Wixela Inhub) 250-50 MCG/ACT AEROSOL POWDER, BREATH ACTIVATED take 1 Puff by inhalation 2 times daily. 60 Each 2 5 Active pravastatin (PRAVACHOL) 40 MG Tablet TAKE 1 TABLET BY MOUTH EVERY DAY IN THE EVENING 90 Tablet 1 5 Active Active Problems Problem Noted Date Diagnosed Date Mild intermittent asthma without complication Sinus tarsi syndrome of right foot 09/06/2022 Non-alcoholic fatty liver disease 07/03/2022 Elevated liver enzymes 07/03/2022 Multiple drug allergies 07/12/2021 Other hyperlipidemia 05/31/2021 Essential hypertension, benign 10/27/2016 Thoracic aortic aneurysm without rupture 011 Aortic valve disorder 07/08/2010 Resolved Problems Problem Noted Date Diagnosed Date Resolved Date Edema 06/06/2022 10/03/2022 Arthralgia 06/06/2022 10/03/2022 Type 2 diabetes mellitus wit hout complication, without long-term current use of insulin 07/12/2021 05/05/2024 Allergic reaction 07/03/2021 07/04/2021 Hyperglycemia 07/03/2021 07/04/2021 Dysthymia 10/27/2016 11/25/2020 Mild persistent asthma without complication 10/27/2016 10/03/2022 Encounters Date Type Department Care Team Description 11/16[facility] [place] [address] [place] [address] Chris De Souza MD Medication Refill 09/11/2024 [facility]phone [facility] [place] [address] [place] [address] Chris De Souza MD 08/18/2024 1:30 PM CDT Office Visit [facility] Internal [facility] [place] [address] [phone] Chris De Souza MD Abdominal pain, lower (Primary Dx) Discharge Disposition: Discharged to home or Selfcare 08/18/2024 Travel from Last 3 Months Immunizations Immunization Administration Dates Next Due Influenza Vaccine 01/10/2016 Influenza Vaccine greater than 3 yrs 03/03/2019 Influenza Vaccine, Quadrivalent, PF 01/13/2022,1 ,01/29/2020 Influenza, Seasonal, Injectable, Undefined 03/03,03/12/2011,01/14/2010 Pneumococcal PCV, Unspecified Formulation 2010 TDAP Vaccine 11/16/2015 Family History Medical History Relation Name Comments Diabetes Father Hypertension Father Hypertension Mother Relation Name Status Comments Father Mother Social History Tobacco Use Types Packs/Day Years Used Date Smoking Tobacco: Never Passive Smoke Exposure: Past Smokeless Tobacco: Never Tobacco Cessation:Counseling Given: No Alcohol Use Standard Drinks/Week Comments Not Currently 0 (1 standard drink = 0.6 oz pur e alcohol) [facility] Utilities Answer Date Recorded In the past 12 months has [employer] electric, gas, oil, or water company threatened [...] week 08/04/2024 How often do you attend chur ch or zoroastrian services? More than 4 times per year 08/04/2024 Do you belong to any clubs o r organizations such as adventism groups, unions, fraternal or athletic groups, or [...] Total Score - Questions 1-9 0 04/17 [facility] - Occupational Stress Questionnaire Answer Date Recorded [...] place to sleep or slept in a long-term (including now)? No 09/18/2023 Housing Stability Vital Sign Answer Rainer e Recorded In the last 12 months, was t here a time when you were not able to pay the mortgage or rent on time? No 08/04/2024 In the past 12 months, how m any times have you moved where you were living? 0 08/04/2024 At any time in the past 12 m [facility], were you homeless or living in a long-term (including now)? No 08/04/2024 Sexually Active Control Partners Comments Yes Comments No Sex and Gender Information Value Date Recorded Sex Assigned at Not on file Legal Sex Female 9:13 PM CDT Gender Identity Not on file Sexual Orientation Not on file Last Filed Vital Signs Vital Sign Reading Time Taken Comments Blood Pressure 130/68 08/18/2024 1:25 PM CDT Pulse 64 08/18/2024 1:25 PM CDT Temperature 36.4 C (97.6 F) 08/18/2024 1:25 PM CDT Respiratory Rate 12 10/03/2023 2:18 PM CDT Oxygen Saturation 98% 08/18/2024 1:25 PM CDT Inhaled Oxygen Concentration - - Weight 98 kg (216 lb) 08/18/2024 1:25 PM CDT Height 172.7 cm (5' 8) 08/18/2024 1:25 PM CDT Body Mass Index 32.84 08/18/2024 1:25 PM CDT Plan of Treatment Upcoming Encounters Date Type Department Care Team (Late st Contact Info) Description 02/03/2025 11:00 AM CDT [facility] [place] [address] [place] [phone] Chris De Souza MD [address] [place] [address] Health Maintenance Due Date Last Done Comments Pneumococcal Immunization (50+ years) (1 of 2 - PCV) 06/26/1983 03/12/2011 Cologuard 2009 Immunochemical Fecal Occult Blood 2009 Zoster Immunization (1 of 2) 2014 SARS-COV-2 Immunization (1 - season) 2023 Colonoscopy 2024 2014 Colorectal Cancer Screening 2024 Respiratory Syncytial Virus (RSV) Immunization (Adult) (1 - Risk 60-74 years 1-dose series) 2024 Influenza Immunization (#1) 2024 09/3 , 01/25/2021, 01/29/2020, Additional history exists Mammogram 10/29/2025 10/29/2024, 12/16, 11/22/2021, Additional history exists Td Immunization Every 10 Years (Adults With 1 Tdap) 11/15/2025 11/16/2015 Pneumococcal Immunization Combined Discontinued 03/12/2011 DTaP/Tdap/Td Immunization Discontinued 11/16/2015 Hepatitis C Virus (HCV) Screening Completed 10/04/2017 Diabetes: Nephropathy Screening Discontinued 05/06/2024, 09/27/2022, 09/27/2022, Additional history exists Diabetes: Hemoglobin A1c Discontinued 025, 05/06/2024, 05/06/2024, Additional history exists Hepatitis B Immunization Aged Out No longer eligible based on patient's age to complete this topic Human Papillomavirus (HPV) Immunization Aged Out No longer eligible based on patient's age to complete this topic Meningococcal Immunization (ACWY) Aged Out No longer eligible based on patient's age to complete this topic Rotavirus Immunization Aged Out No lo nger eligible based on patient's age to complete this topic Procedures Procedure Name Priority Date/Time Associated Diagnosis Comments MAMMOGRAM BILATERAL GENERIC 10/29/2024 12:00 AM CDT POCT GLYCOSYLATED HEMOGLOBIN Routine 08/04/2024 10:00 AM CDT Type 2 diabetes mellitus without complication, without long-term current use of insulin CMP (COMPREHENSIVE METABOLIC PANEL) Routine 05/06/2024 12:00 AM FOOD SERVICE ASSISTANT Essential hypertension, benign Other hyperlipidemia HEPATITIS C ANTIBODY Routine 10/04/2017 3:42 PM CDT Abnormal blood chemistry from Last 3 Months or Most Recently Relevant to Health Maintenance Results * MAMMOGRAM BILATERAL GENERIC (10/29/2024 12:00 AM CDT) 10/29/2024 us Provider Scan IMG MAMMO ORDERABLES Final Resul t SCAN * POCT GLYCOSYLATED HEMOGLOBIN (08/04/2024 10:00 AM CDT) HGB-A1C 5.8 4 - 6 % 08/04/2024 10:0 0 AM CDT Chris De Souza MD POINT OF CARE TESTING (MANU AL) Final Result * CMP (COMPREHENSIVE METABOLIC PANEL) (05/06/2024 12:00 AM FOOD SERVICE ASSISTANT) Blood Chris De Souza MD CHEMISTRY ORDERABLES Final Result SCAN * HEPATITIS C ANTIBODY (10/04/2017 3:42 PM CDT) hepatitis C antibody 0.07 <1 S/CO 10/04/2017 10:37 PM CDT [facility] Comment: Signal/Cutoff ratio < 0.79 is Nondetected Signal/Cutoff ratio 0.80-0.99 is Grayzone Signal/Cutoff ratio > 0.99 is Detected Supplemental assays are recommended if signal/cutoff ratio is >/=1.00. Signal/cutoff ratio result >/= 5.00 is 97% predictive of positivity for recombinant immunoblot assay (RIBA) and will be reported to the [place] Department of Public [facility] as required. Blood specimen (specimen) Venipuncture / Unknown 10/04/2017 3:42 PM CDT 10/04/2017 4:05 PM CDT Chris De Souza MD CHEMISTRY ORDERABLES Final Result Performing Organization Address City/[facility]/ZIP Co de Phone Number [facility] [address] [place] [address], [place] from Last 3 Months or Most Recently Relevant to Health Maintenance [place] [address] [place] [address] Advance Directives * Full Code (Latest Code Status on File) Date Activated Date Inactivated Comments 07/02/2021 11:13 PM 07/05/2021 2:41 PM CPR-Full Tr eatment: FULL ARREST: Attempt Resuscitation/CPR wit intubation and mechanical ventilation. PRE-ARREST: Use entire range of life support measures to stabilize the patient. Care Teams Clothing Patternmaker Relationship Specialty Start Date End Date Chris De Souza MD [address] [place] [address] PCP - General Internal Medicine 08/06/15 Ryan Acosta MD [address] [address] Consulting Physician Colon and Rectal Surgery 07/25/24
--- OUTSIDE RECORDS SUMMARY | 2024-11-17 00:50 | XMS_ITS | Encounter Summary ---
Author Organization [facility] Address [address] [place] [address] Phone Care Team Providers Care Document Scanner Name Role Phone Chris De Souza MD Primary Care Provider [phone] Ryan Acosta MD Unavailable Reason for Visit * Reason Onset Date Comments COVID-19 02/11/2020 Encounter Details Date Type Department Care Team (Late st Contact Info) Description 02/11/2020 [facility] [address] [place] [id number] Chris De Souza MD [address] [facility] [place] [address] COVID-19 Social History Tobacco Use Types Packs/Day Years Used Date Smoking Tobacco: Never Smokeless Tobacco: Never PHQ-2 Answer Date Recorded Total Score - Questions 1-9 0 01/14 Comments No Sex and Gender Information Value Date Recorded Sex Assigned at Not on file Legal Sex Female 9:13 PM CDT Gender Identity Not on file Sexual Orientation Not on file COVID-19 Exposure Response Date Recorded In the last month, have you been in contact with someone who was confirmed or suspected to have Coronavirus / COVID-19? Yes 02/11/2020 2:27 PM CDT documented as of this encounter Miscellaneous Notes * Telephone Encounter - Faina Chavez RN - 02/11/2020 2:27 PM CDT Images from the original note were not included. Travel Screening Question Response In the last month, have you been in contact with someone who was confirmed or suspected to have Coronavirus / COVID-19? Yes Have you had a COVID-19 viral test in the last 14 days? No Do you have any of the following new or worsening symptoms? Cough;Sore throat;Runny nose;Fatigue;Chills;Severe headache;Loss of taste;Loss of smell Have you traveled internationally in the last month? No Travel History Travel since 01/12/20 No documented travel since 01/12/20 Patients whose symptoms require immediate emergency assistance should be directed to contact 911 for emergency assistance. If the triage nurse is calling 911, notify the dispatcher of the positive screening. Screening Results: COVID-19 LIKE SYMPTOMS State to Patient: Based on your answers, I recommend that you please remain on the line while I transfer you to a triage nurse who can advise you further on next steps. Did patient refuse match marker? no. ??? If patient refuses to speak to a nurse: Please continue to monitor your symptoms and if they get worse, do not hesitate to call us back. We are here 06/11. We recommend you refer to the CDC website regarding guidelines for self- isolation and thank you for calling. Faina Chavez RN Travel Screening Question Response In the last month, have you been in contact with someone who was confirmed or suspected to have Coronavirus / COVID-19? Yes Have you had a COVID-19 viral test in the last 14 days? No Do you have any of the following new or worsening symptoms? Cough;Sore throat;Runny nose;Fatigue;Chills;Severe headache;Loss of taste;Loss of smell Have you traveled internationally in the last month? No Travel History Travel since 01/12/20 No documented travel since 01/12/20 COVID-19 Testing Priority for Sandra Ramos: 2 Nurse to triage SITUATION: Patient calling with sxs and positive exposure BACKGROUND: pt around coworker last Sunday who has tested positive. Pt has hx of asthma, has inhaler (not on med list) states she has not used for a long time. ASSESSMENT: Symptom Description / Location: sxs started sat night with runny nose and sore throat, cough on [place], and loss of taste and smell today Pain (0-10): headache on and off--currently doesn't have one Temp: chilled but no fever Treatment / Response: mucinex and zyrtec, started abx yesterday RECOMMENDATION: See care advice and disposition for Guidelines First positive answer recorded, all responses to prior questions were negative. If symptoms increase, change, or if new symptoms develop, call back or call your HCP. Recommendations were based on caller information and are not a diagnosis. Verified and reviewed all triage information with caller. Patient request for an excuse note: (Per CDC: Employers should not require a positive COVID-19 testresult or a healthcare provider's note for employees who are sick to validate their illness, qualify for sick leave, or to return to work.) o If patient continues to request/need a return to work note, ask them to send a request via [employer] to their provider (you may need to activate a [employer] account with them). You may also route an excuse note request to the provider. Inform the patient that the provider will determine if a note will be sent and let them know that a telephone visit may be required. Caller verbalizes understanding of the above information. Faina Chavez RN Reason for Disposition ??? [1] COVID-19 infection suspected by caller or triager AND [2] mild symptoms (cough, fever, or others) AND [3] no complications or SOB Protocols used: CORONAVIRUS (COVID-19) DIAGNOSED OR [id number] documented in this encounter Plan of Treatment Upcoming Encounters Date Type Department Care Team (Late st Contact Info) Description 02/03/2025 11:00 AM CDT Office Visit [facility] - [facility] - [place] [address] [place] [address] Chris De Souza MD [address] [place] [address] documented as of this encounter Visit Diagnoses Not on filedocumented in this encounter Additional Health Concerns Infection Onset Date Last Indicated Resolved Time COVID - 19 02/12/2020 02/12/2020 02/13/2020 4:14 PM CDT COVID - 19 Confirmed 02/12/2020 02/12/2020 020 12:18 AM DAMAGED FREIGHT INSPECTOR COVID - 19 02/21/2021 02/21/2021 03/13/2021 12:1 6 AM DAMAGED FREIGHT INSPECTOR COVID - 19 02/06/2022 02/06/2022 02/16/2022 12:1 8 AM CDT Assessment Noted Time PHQ-9 Depression Total Score: 0 01/29/20 20 3:00 PM CDT documented as of this encounter Care Teams Document Scanner Relationship Specialty Start Date End Date Chris De Souza MD [address] [place] [place] [address] PCP - General Internal Medicine 08/06/15 Ryan Acosta MD [address] [address] Consulting Physician Colon and Rectal Surgery 07/25/24 documented as of this encounter
--- OUTSIDE RECORDS SUMMARY | 2024-11-17 00:50 | XMS_ITS | Clinical Summary ---
Author Organization [facility] Address [address] [place] [address] Phone Care Team Providers Care Independent Living Instructor Name Role Phone Chris De Souza MD Primary Care Provider [phone] Allergies Active Allergy Reactions Criticality Noted Date Comments Amoxicillin-Pot Clavulanate Angioedema High 12/25/19 11 Aspirin Other (See Comments) Low 08/18/2010 Jittery Cephalexin Rash Low 12/24/2010 Moxifloxacin Shortness of Breath/Wheezing,Rash High 12/24/2010 Sulfa (Sulfonamide Antibiotics) Rash Medium 08/18/2010 Medications albuterol (PROVENTIL,VENT IDA) 90 mcg/Actuation Inhalation HFAA Take 2 Puffs by inhalation every 4 hours as needed for Shortness of Breath. 1 Inhaler 0 1 Active cetirizine (ZYRTEC) 10 mg Oral tablet Take 1 Tab by mouth daily. Active omeprazole (PRILOSEC) 20 mg Capsule, Delayed Release(E.C.) Take 2 Caps by mouth daily. 30 Cap 1 5 Active predniSONE 10 mg Tablets, Dose Pack 4 po qd x 3 days, then 3 po qd x 3 days, then 2 po qd x 3 days, then 1 po qd x 3 days. 30 Tab 0 5 Active omeprazole (PRILOSEC) 40 mg Capsule, Delayed Release(E.C.) Take 1 Cap (40 mg) by mouth daily. 90 Cap 3 5 Active Active Problems Patient Care Coordination No te Formatting of this note migh t be different from the original. Taxi Driver Supervisor - Dr Cody Varela Problem Noted Date Diagnosed Date Bicuspid aortic valve 05/26/2011 Hypothyroidism 01/01/2011 Hives 12/28/2010 Asthma 12/28/2010 Urticaria 12/24/2010 Anaphylactoid reaction 12/24/2010 Syncope and collapse 11/18/2010 Enlarged thoracic aorta 09/08/2010 Overview (05/08/2014): Mildly enlarged by CT angio of chest [...] dilated = 3.9 cm Aortic valvar stenosis with Bicuspid Aortic Valv e 09/07/2010 Overview (05/08/2014): Cath 08/2010 -- mild with angiographically normal [...] 1.34cm\S\2(VTI). Aortic valve insufficiency, acquired 09/07/2010 Overview (05/07/2014): Mild by echo, 10/2011 Trivial AI, echo 11/2012 Dyspnea 08/18/2010 Wheezing 08/18/2010 Resolved Problems Problem Noted Date Diagnosed Date Resolved Date Chest pain, unspecified 08/18/2010 08/0 08/2010 Immunizations Immunization Administration Dates Next Due Influenza Seasonal Unspecified Formulation IM ,01/14/2010 Pneumococcal conjugate, unspecified formulation 03/12/2011 Family History Medical History Relation Name Comments Diabetes Father Emphysema Father Heart Disease Father Hypertension Father Asthma Maternal Aunt Emphysema Maternal Grandfather Asthma Maternal Grandmother Hypertension Mother Bronchitis Neg Hx Lung Cancer Neg Hx Mesothelioma Neg Hx Tuberculosis Neg Hx Relation Name Status Comments Father Maternal Aunt Maternal Grandfather Maternal Grandmother Mother Social History Tobacco Use Types Packs/Day Years Used Date Smoking Tobacco: Never Smokeless Tobacco: Never Alcohol Use Standard Drinks/Week Comments No 0 (1 standard drink = 0.6 oz pur e alcohol) Comments No Sex and Gender Information Value Date Recorded Sex Assigned at Not on file Legal Sex Female 4:04 AM ASSISTANT BOOKKEEPER Gender Identity Not on file Sexual Orientation Not on file Last Filed Vital Signs Vital Sign Reading Time Taken Comments Blood Pressure 114/70 05/22/2014 1:25 PM ASSISTANT BOOKKEEPER Pulse 96 05/22/2014 1:25 PM ASSISTANT BOOKKEEPER Temperature 36.7 C (98.1 F) 01/02/2011 1:48 PM CDT Respiratory Rate 16 05/22/2014 1:25 PM ASSISTANT BOOKKEEPER Oxygen Saturation 97% 05/22/2014 1:25 PM ASSISTANT BOOKKEEPER RA Inhaled Oxygen Concentration - - Weight 104.3 kg (230 lb) 05/22/2014 3:20 PM ASSISTANT BOOKKEEPER Height 172.7 cm (5' 8) 05/22/2014 1:25 PM ASSISTANT BOOKKEEPER Body Mass Index 34.97 05/22/2014 1:25 PM ASSISTANT BOOKKEEPER Plan of Treatment Health Maintenance Due Date Last Done Comments DTAP/TDAP/TD VACCINES (1 - Tdap) 06/26/1983 HPV/Cotest (21-29) 1985 CERVICAL CANCER SCREENING 1994 HPV/Cotest (30-65) 1994 PAP SMEAR 1994 BREAST CANCER SCREENING 2004 COLORECTAL SCREENING 2009 Colorectal Cancer Screening 2009 FIT-DNA Q 3 years 2009 FIT/FOBT Q 1 year 2009 Flex Sig/CT Colonography Q 5 years 2009 ZOSTER VACCINE (1 of 2) 2014 RSV VACCINE (60+ or ) (1 - Risk 60-74 years 1-dose series) 2024 INFLUENZA VACCINE (#1) 2024 1, 01/14/2010 HEPATITIS B VACCINES Aged Out No long er eligible based on patient's age to complete this topic Insurance [facility] [id number] Advance Directives For more information, please contact: [phone] * Full Code (Latest Code Status on File) Date Activated Date Inactivated Comments 12/28/2010 4:56 AM 01/02/2011 7:53 PM * Full Code Date Activated Date Inactivated Comments 09/07/2010 1:43 PM 09/08/2010 9:15 AM * Full Code Date Activated Date Inactivated Comments 09/07/2010 11:05 AM 09/07/2010 1:43 PM * Full Code Date Activated Date Inactivated Comments 09/07/2010 11:03 AM 09/07/2010 11:05 AM Care Teams Independent Living Instructor Relationship Specialty Start Date End Date Chris De Souza MD [address] [place] [address] PCP - General Internal Medicine 08/17/10
[2024-11-17 12:57] VITALS: BP 128/74; PULSE 55; RESP 18; TEMP 36.9; O2SAT 99
[2024-11-17] MEDS: LACTATED RINGERS 1,000 ML 150 ML IV CONT (13:01)
--- NOTE | 2024-11-17 13:05 | WPDANESEPPF ---
Anes - Initial Pre Proc Eval Procedure: Operation Date: 11/17/24 14:00 Proposed Procedures p Colonoscopy - Leo Martinez MD Date/Time: 11/17/24 13:05 Surgeon: Leo Martinez MD Pre Op Diagnosis: Diverticulosis of large intestine w/o perforation Patient Data Age: 59 Gender: F Height: 1.73 m Weight: 92.5 kg Last Vital Signs Temp 36.9 C 11/17/24 12:57 Pulse 55 L 11/17/24 12:57 Resp 18 11/17/24 12:57 BP 128/74 11/17/24 12:57 Pulse Ox 99 11/17/24 12:57 O2 Del Method Room Air 11/17/24 12:57 Allergies Allergy/AdvReac Type Severity Reaction Status Date / Time levofloxacin (From Levaquin) Allergy Severe Anaphylaxis Verified 11/17/24 12:55 moxifloxacin (From Avelox) Allergy Severe Anaphylaxis Verified 11/17/24 12:55 nitrofurantoin Allergy Severe Anaphylaxis Verified 11/17/24 12:55 amoxicillin Allergy Mild Rash Verified 11/17/24 12:55 Sulfa (Sulfonamide Allergy Mild Rash Verified 11/17/24 12:55 Antibiotics) Home Medications ?Medication ?Instructions ?Recorded ?Confirmed ?Type carvedilol 12.5 mg tablet 12.5 mg PO Q12H 08/21/24 11/17/24 History cetirizine 10 mg capsule (Zyrtec) 10 mg PO DAILY PRN allergy symptoms 08/21/24 11/17/24 History mecobalamin (vitamin B12) 1,000 1,000 mcg PO DAILY 08/21/24 11/17/24 History mcg chewable tablet (B12 Active) pravastatin 40 mg tablet 40 mg PO DAILY 08/21/24 11/17/24 History estradiol 0.01% (0.1 mg/gram) 1 g vaginal WEEKLY 10/30/24 10/30/24 History vaginal cream Patient hx anesthesia problems: none Family hx anesthesia problems: none Results Review: All pre-operative results and documents have been reviewed as part of the pre-operative evaluation. [facility] Past Medical History Medical History (Updated 11/17/24 @ 13:39 by Leo Martinez MD) History of diverticulitis of colon Diabetes type 2, controlled diet controlled HLD (hyperlipidemia) Hypertension Surgical History Surgical History (Updated 08/21/24 @ 15:30 by Vi Crocker APRN) History of ankle surgery H/O abdominal hysterectomy Social History Social History Smoking status: Unknown if ever smoked Substance use type: does not use Living arrangements: with family Additional living arrangements comments: with sp Refugio Momin Final PreProcedure Day of Procedure 11/17/24 13:05 Patient weight: obese Heart: regular rate and rhythm Lungs: clear to auscultation Airway: Mallampati scale class II Neurological: alert and oriented Last oral intake: >/= 8 hours ASA classification: III Emergent: no Anesthetic plan: proceed Anesthesia type and monitoring: general GIVS and standard monitoring Results Review: All pre-operative results and documents have been reviewed as part of the pre-operative evaluation. Informed Consent: The patient's anesthetic plan and its attendant risks and benefits were discussed with the patient/family/POA. Questions were solicited and answers provided to the satisfaction of the patient/family/POA.
--- NOTE | 2024-11-17 13:38 | PM.HPGS ---
History of Present Illness History of Present Illness Consent: Risks, benefits, and alternatives have been discussed and questions answered. Patient agrees to proceed with procedure. Chief complaint: Diverticulosis of large intestine w/o perforation Narrative: Sandra Ramos is a 59 year old female with diverticulitis, last colonoscopy 10 years ago Review of Systems Review of Systems: All systems reviewed & are unremarkable except as noted in HPI and below PMFSH Past Medical History Medical History (Updated 11/17/24 @ 13:39 by Leo Martinez MD) History of diverticulitis of colon Diabetes type 2, controlled diet controlled HLD (hyperlipidemia) Hypertension Surgical History Surgical History (Updated 08/21/24 @ 15:30 by Vi Crocker APRN) History of ankle surgery H/O abdominal hysterectomy Social History Social History Smoking status: Unknown if ever smoked Substance use type: does not use Meds Home Medications and Allergies Home Medications ?Medication ?Instructions ?Recorded ?Confirmed ?Type carvedilol 12.5 mg tablet 12.5 mg PO Q12H 08/21/24 11/17/24 History cetirizine 10 mg capsule (Zyrtec) 10 mg PO DAILY PRN allergy symptoms 08/21/24 11/17/24 History mecobalamin (vitamin B12) 1,000 1,000 mcg PO DAILY 08/21/24 11/17/24 History mcg chewable tablet (B12 Active) pravastatin 40 mg tablet 40 mg PO DAILY 08/21/24 11/17/24 History estradiol 0.01% (0.1 mg/gram) 1 g vaginal WEEKLY 10/30/24 10/30/24 History vaginal cream Allergies Allergy/AdvReac Type Severity Reaction Status Date / Time levofloxacin (From Levaquin) Allergy Severe Anaphylaxis Verified 11/17/24 12:55 moxifloxacin (From Avelox) Allergy Severe Anaphylaxis Verified 11/17/24 12:55 nitrofurantoin Allergy Severe Anaphylaxis Verified 11/17/24 12:55 amoxicillin Allergy Mild Rash Verified 11/17/24 12:55 Sulfa (Sulfonamide Allergy Mild Rash Verified 11/17/24 12:55 Antibiotics) Vital Signs Vital Signs - 24 hr 11/17/24 12:57 Temperature 98.4 F Pulse Rate 55 L Respiratory Rate 18 Blood Pressure 128/74 Pulse Oximetry 99 Oxygen Delivery Room Air Exam Const: General: comfortable and no acute distress HENMT: Face/Nose/Sinus: Normal nares present Eyes: General: appearance normal, both eyes and all related structures Neck: Neck: no JVD Resp: Auscultation: clear to auscultation bilaterally Cardio: Rate: regular rate Rhythm: regular rhythm GI: Inspection: non-distended GI Palp: Yes Soft to palpation Skin: General skin exam: normal color Neuro: Speech: normal speech Extrem: General: normal to inspection Psych: Mental Status: mental status grossly normal Assessment and Plan Assessment and plan (1) History of diverticulitis of colon: Code(s): Z87.19 - Personal history of other diseases of the digestive system Status: Acute Assessment and Plan: colonoscopy
[2024-11-17 13:57] VITALS: BP 107/58; PULSE 52; RESP 16; O2SAT 97
[2024-11-17 14:07] VITALS: BP 108/57; PULSE 53; RESP 16; O2SAT 97
[2024-11-17 14:17] VITALS: BP 110/64; PULSE 58; RESP 17; O2SAT 100
== END 2024-11-17 14:21 | disposition home or self-care (01) ==
PROVIDERS: PCP Internal Medicine; Referring Provider Nurse Practitioner; Visit Provider Internal Medicine Gastroenterology
PROC: 0DJD8ZZ Inspection of Lower Intestinal Tract, Via Natural or Artificial Opening Endoscopic (ICD-10-PCS; CPT 45378; principal; 2024-11-17 14:00)
DX: K57.30 Diverticulosis of large intestine without perforation or abscess without bleeding (principal); K64.8 Other hemorrhoids; E78.5 Hyperlipidemia, unspecified; I10 Essential (primary) hypertension; E11.9 Type 2 diabetes mellitus without complications; E66.9 Obesity, unspecified; Z68.31 Body mass index [BMI] 31.0-31.9, adult; Z98.890 Other specified postprocedural states; Z87.19 Personal history of other diseases of the digestive system
CPT/HCPCS: 45380; J2003; J2704; J7120